=== PATIENT | male | born 1965 | race Caucasian/White ===

== ENCOUNTER 2017-02-13 08:25 | Inpatient (IN) | payer OTHER ==
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
[2017-02-13] MEDS ORDERED: fentaNYL 100 MCG/2 ML INJ ONE ×2 (08:34→18:17)
[2017-02-13] MEDS ORDERED: fentaNYL 100 MCG/2 ML INJ IVP ONE ×3 (08:35→10:05)
[2017-02-13] MEDS ORDERED: LORazepam 2 MG/ML INJ IVP PRN (10:06)
[2017-02-13] MEDS ORDERED: LORazepam 2 MG/ML INJ ONE (10:08)
[2017-02-13] MEDS ORDERED: HYDROmorphONE/DILAUDID 1 MG/ML SYR ONE (12:01)
[2017-02-13] MEDS ORDERED: HYDROmorphONE/DILAUDID 2 MG/ML INJ IVP PRN (12:02)
[2017-02-13] MEDS ORDERED: HYDROmorphONE/DILAUDID 6 MG/30 ML PCA IV ONE (12:25)
[2017-02-13] MEDS ORDERED: ONDANSETRON 4 MG/2 ML VIAL ONE ×2 (13:02→18:48)
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
[2017-02-13] MEDS ORDERED: ONDANSETRON 4 MG/2 ML VIAL IVP PRN ×2 (14:03→14:07)
[2017-02-13] MEDS ORDERED: DIAZEPAM 10 MG/2 ML SYR IVP PRN (14:07)
[2017-02-13] MEDS ORDERED: BUPIVACAINE 0.5% 30 ML SDV ONE (14:20)
[2017-02-13] MEDS ORDERED: LIDOCAINE 1% 30 ML SDV ONE (14:20)
[2017-02-13 14:34] LABS: % IMMATURE GRANULYOCYTES 0.3 % (0.0-1.1); ABSOLUTE IMMATURE GRANULOCYTES 0.04 10^3/uL (0.00-0.10); ADD DIFF? NO; ADD MORPH? NO; ADD SCAN? NO; ATYPICAL LYMPHOCYTE FLAG 0 (0-99); FRAGMENT RBC FLAG 0 (0-99); HEMATOCRIT 40.8 % (40.0-51.0); HEMOGLOBIN 14.2 g/dL (13.7-17.5); LEFT SHIFT FLG 0 (0-99); LIPEMIA HEMOLYSIS FLAG 90 (0-99); MEAN CELL HEMOGLOBIN 30.2 pg (27.9-34.1); MEAN CELL HEMOGLOBIN CONCENTR. 34.8 g/dL (32.4-36.7); MEAN CELL VOLUME 86.8 fL (81.5-99.8); MEAN PLATELET VOLUME 9.9 fL (8.7-11.7); PLATELET CLUMPS FLAG 0 (0-99); PLATELET COUNT 211 10^3/uL (150-400); RED CELL DISTRIBUTION WIDTH 12.9 % (11.5-15.2)
[2017-02-13 14:43] LABS: INR 1.11 (0.83-1.16); PROTIME(PATIENT) 14.2 SEC (12.0-15.0)
[2017-02-13 14:44] LABS: APTT 23.3 SEC (23.0-38.0)
--- NOTE | 2017-02-13 14:57 | CPEKG ---
Heart Rate: 53 RR Interval: 1132 P-R Interval: 156 QRSD Interval: 82 QT Interval: 436 QTC Interval: 410 P Cheriton: 65 QRS Cheriton: 69 T Wave Cheriton: -26 EKG Severity - ABNORMAL ECG - EKG Impression: SINUS RHYTHM EKG Impression: NONSPECIFIC T ABNORMALITIES, INFERIOR LEADS Electronically Signed By: García Arevalo 14-Feb-2017 14:24:25
[2017-02-13 14:58] LABS: ANION GAP 8 mEq/L (8-16); CALCIUM 8.9 mg/dL (8.5-10.4); CARBON DIOXIDE 25 mEq/l (22-31); CHLORIDE 102 mEq/L (97-110); CREATININE 0.8 mg/dL (0.7-1.3); GLOMERULAR FILTRATION RATE > 60; GLUCOSE 108 mg/dL (70-100); POTASSIUM 4.8 mEq/L (3.5-5.2); SODIUM 135 mEq/L (134-144)
[2017-02-13] MEDS ORDERED: MIDAZOLAM 2 MG/2 ML VIAL ONE (16:15)
[2017-02-13] MEDS ORDERED: SCOPOLAMINE HYDROBROMIDE 1.5 MG PATCH TD ONE ×2 (16:17→16:30)
[2017-02-13] MEDS ORDERED: DEXAMETHASONE 4 MG/ML VIAL ONE (16:20)
[2017-02-13] MEDS ORDERED: RANITIDINE 50 MG/2 ML VIAL ONE (16:20)
[2017-02-13] MEDS ORDERED: fentaNYL 250 MCG/5 ML INJ ONE (16:20)
[2017-02-13] MEDS ORDERED: ROCURONIUM 50 MG/5 ML VIAL ONE ×2 (16:20→17:25)
[2017-02-13] MEDS ORDERED: PROPOFOL 200 MG/20 ML VIAL ONE (16:20)
[2017-02-13] MEDS ORDERED: ceFAZolin 2 GM/DEXTROSE 100 ML IV ONE (16:30)
[2017-02-13] MEDS ORDERED: NALOXONE HCL 0.4 MG/ML INJ IVP PRN (16:40)
[2017-02-13] MEDS ORDERED: HYDROmorphONE/DILAUDID 6 MG/30 ML PCA IV PRN (16:40)
[2017-02-13] MEDS ORDERED: ceFAZolin 1 GM VIAL ONE ×2 (17:06)
[2017-02-13] MEDS ORDERED: epHEDrine SULFATE 10 MG/ML SYR ONE (19:07)
[2017-02-13] MEDS ORDERED: NEOSTIGMINE METHYLSULFATE 5 MG/5 ML SYR ONE (19:41)
[2017-02-13] MEDS ORDERED: GLYCOPYRROLATE 0.2 MG/1 ML VIAL ONE (19:41)
--- NOTE | 2017-02-13 20:44 | SOAPPROG ---
SOAP Progress Note Assessment/Plan: Assessment: Pt is POD#0 right femur ORIF. Alert and oriented x3 NV intact Operative dressing intact Plan: 1. Flat foot weight bearing RLE 2. 1 dose Ancef to be given tonight 3. PT/OT tomorrow prior to discharge 4. Ok to discharge tomorrow with appointment scheduled with Dr. Goins in 2 weeks for wound check. 5. Prescriptions given to after surgery 02/13/17 20:40 Objective: Vital Signs Temp Pulse Resp BP Pulse Ox 36.5 C 125 H 12 125/75 H 100 02/13/17 20:27 02/13/17 20:27 02/13/17 20:36 02/13/17 20:36 02/13/17 20:36 Laboratory Results 02/13/17 14:29 02/13/17 14:29 02/12/17 02/13/17 02/14/17 05:59 05:59 05:59 Intake Total 1450 Output Total 750 Balance 700 PT 14.2 SEC (12.0-15.0) 02/13/17 14:29 INR 1.11 (0.83-1.16) 02/13/17 14:29 ICD10 Worksheet Patient Problems: Problems Problem Status Onset Femur fracture, right Acute
--- NOTE | 2017-02-13 20:46 | POSTOPPROG ---
Post Op Note Date of Operation: 02/13/17 Surgeon: Capo Goins Anesthesiologist: Angela Oquendo PA-C Anesthesia: GET(General Endotracheal) Pre-op Diagnosis: right femur fracture Post-op Diagnosis: right femur fracture Procedure: ORIF right femur Findings: right femur fracture Inf/Abcess present in the surg proc area at time of surgery?: No Depth: Deep Incisional (Fascial) EBL: 100-500
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
[2017-02-14] MEDS: OXYCODONE/APAP 5/325 TAB PO PRN ×3 (06:20→18:31)
--- NOTE | 2017-02-14 13:08 | SOAPPROG ---
SOAP Progress Note Assessment/Plan: Assessment: Pt is POD#1 right femur ORIF. Patient is doing well but is reporting pain and muscle spasm. Alert and oriented x3 NV intact Operative dressing intact with sanguineous drainage Plan: 1. Flat foot weight bearing RLE 2. Reinforce operative dressing 3. Continue PT/OT 4. Ok to discharge once cleared by PT/OT with appointment scheduled with Dr. Goins in 2 weeks for wound check. 5. Prescriptions given to after surgery 02/13/17 20:40 02/14/17 13:05 Objective: Vital Signs Temp Pulse Resp BP Pulse Ox 37.2 C 79 18 122/65 H 98 02/14/17 11:41 02/14/17 11:41 02/14/17 11:41 02/14/17 11:41 02/14/17 11:41 PT 14.2 SEC (12.0-15.0) 02/13/17 14:29 INR 1.11 (0.83-1.16) 02/13/17 14:29 ICD10 Worksheet Patient Problems: Problems Problem Status Onset Femur fracture, right Acute
[2017-02-14] MEDS ORDERED: MAGNESIUM HYDROXIDE 30 ML UDCUP PO PRN (13:49)
[2017-02-14] MEDS ORDERED: BISACODYL 10 MG SUPP PR PRN (13:49)
[2017-02-14] MEDS ORDERED: LACTULOSE 20 GM/30 ML UDCUP PO PRN (13:49)
[2017-02-14] MEDS ORDERED: DIAZEPAM 10 MG/2 ML SYR IVP PRN (13:50)
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
[2017-02-14] MEDS: SENNOSIDES/DOCUSATE SODIUM TAB PO SCH ×2 (16:15→19:42)
[2017-02-14] MEDS: DIAZEPAM 5 MG TAB PO PRN ×2 (16:15→22:39)
[2017-02-14 18:45] LABS: HEMATOCRIT 27.8 % (40.0-51.0); HEMOGLOBIN 9.8 g/dL (13.7-17.5); MEAN CELL HEMOGLOBIN 30.6 pg (27.9-34.1); MEAN CELL HEMOGLOBIN CONCENTR. 35.3 g/dL (32.4-36.7); MEAN CELL VOLUME 86.9 fL (81.5-99.8); RED BLOOD CELL COUNT 3.2 10^6/uL (4.40-6.38); RED CELL DISTRIBUTION WIDTH 12.8 % (11.5-15.2)
[2017-02-14] MEDS: KETOROLAC 30 MG/1 ML SDV IVP PRN (19:42)
[2017-02-15] MEDS: KETOROLAC 30 MG/1 ML SDV IVP PRN (02:16)
[2017-02-15] MEDS: OXYCODONE/APAP 5/325 TAB PO PRN ×5 (02:16→21:40)
[2017-02-15] MEDS: DIAZEPAM 5 MG TAB PO PRN ×3 (06:01→21:03)
[2017-02-15 09:39] LABS: HEMATOCRIT 27.1 % (40.0-51.0); HEMOGLOBIN 9.4 g/dL (13.7-17.5)
[2017-02-15] MEDS: POLYETHYLENE GLYCOL 3350 17 GM PKT PO PRN (09:53)
[2017-02-15] MEDS: SENNOSIDES/DOCUSATE SODIUM TAB PO SCH ×2 (09:53→21:03)
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
--- NOTE | 2017-02-15 19:36 | SOAPPROG ---
SOAP Progress Note Assessment/Plan: Assessment: HPI: 51 year old male now POD#2 from right proximal femoral shaft, right ST femur, and right IT femur fracture ORIF with a cephalomedullary device on 02/13/17. He reports that his pain is much improved today in comparison to yesterday. PE: RLE: Dressings CDI Thigh firm but compressible +Q, H, TA, EHL, FHL, G/S +SILT in DP, SP, Sural, Tibial, and Saphenous distributions 2+ DP and PT pulses Assessment and Plan 51 year old male now POD#2 from right proximal femoral shaft, right ST femur, and right IT femur fracture ORIF with a cephalomedullary device on 02/13/17 doing well -FFWB on RLE with crutches or walker -Continue with PT/OT for crutch training and transfers -Wean off of IV pain medications as tolerated -FU as an outpatient in 2 weeks for a wound check and staple removal -In the interim, he will keep the incisions clean and dry Addendum to above note: Contacted by Dr. Nishi Islas in regards to a change in patient's status. Evidence of left eye dilation. CT of head ordered to r/o an intracranial process. CT of head completed with evidence of sinusitis. As such, we will initiate of course of Augmentin PO for seven days. 02/15/17 19:30 Objective: Vital Signs Temp Pulse Resp BP Pulse Ox 36.6 C 75 17 116/64 94 02/15/17 19:28 02/15/17 19:28 02/15/17 19:28 02/15/17 19:28 02/15/17 19:28 Laboratory Results 02/15/17 09:30 02/14/17 02/15/17 02/16/17 05:59 05:59 05:59 Intake Total 900 Output Total 1350 900 Balance -450 -900 PT 14.2 SEC (12.0-15.0) 02/13/17 14:29 INR 1.11 (0.83-1.16) 02/13/17 14:29 ICD10 Worksheet Patient Problems: Problems Problem Status Onset Femur fracture, right Acute
[2017-02-15] MEDS: AMOX/CLAVULANATE 500/125 MG TAB PO SCH (21:40)
[2017-02-16] MEDS: OXYCODONE/APAP 5/325 TAB PO PRN ×3 (00:48→06:25)
[2017-02-16] MEDS: DIAZEPAM 5 MG TAB PO PRN (03:25)
[2017-02-16] MEDS: AMOX/CLAVULANATE 500/125 MG TAB PO SCH ×3 (06:25→22:16)
[2017-02-16] MEDS ORDERED: ONDANSETRON DISINTEGRATING 4 MG TAB PO PRN (09:47)
[2017-02-16] MEDS: traMADol 50 MG TAB PO PRN ×2 (09:50→16:06)
[2017-02-16] MEDS: SENNOSIDES/DOCUSATE SODIUM TAB PO SCH ×2 (09:50→20:44)
[2017-02-16] MEDS: ONDANSETRON DISINTEGRATING 4 MG TAB PO PRN ×2 (09:51→16:04)
[2017-02-16] MEDS: CYCLOBENZAPRINE 10 MG TAB PO PRN ×2 (10:00→20:44)
[2017-02-16] MEDS: ACETAMINOPHEN 500 MG TAB PO SCH ×3 (11:16→22:16)
[2017-02-16] MEDS: POLYETHYLENE GLYCOL 3350 17 GM PKT PO PRN (11:17)
--- NOTE | 2017-02-16 11:28 | SOAPPROG ---
SOAP Progress Note Assessment/Plan: HPI: 51 year old male now POD#3 from right proximal femoral shaft, right ST femur, and right IT femur fracture ORIF with a cephalomedullary device on 02/13/17. He reports that his pain has continued to improve however he is still reporting dizziness with standing. PE: RLE: Dressings CDI Thigh firm but compressible. Calf is soft +Q, H, TA, EHL, FHL, G/S +SILT in DP, SP, Sural, Tibial, and Saphenous distributions 2+ DP and PT pulses Assessment and Plan 51 year old male now POD#3 from right proximal femoral shaft, right ST femur, and right IT femur fracture ORIF with a cephalomedullary device on 02/13/17 doing well -CBC ordered -FFWB on RLE with crutches or walker -Continue with PT/OT for crutch training and transfers -Continue to wean off of IV pain medications as tolerated -Plan to discharge later today or tomorrow morning once cleared from PT/OT -FU as an outpatient in 2 weeks for a wound check and staple removal -In the interim, he will keep the incisions clean and dry Addendum: HGB 8.[address] Goins was notified and spoke with patients . Patient has mild dizziness with standing but otherwise feels good. We will repeat CBC in the AM. If Hgb drops, we will consider transfusion. Patient would also like home PT. Patient will be discharged with home PT, likely tomorrow afternoon. 02/16/17 11:23 02/17/17 12:38 Objective: Vital Signs Temp Pulse Resp BP Pulse Ox 36.9 C 79 15 117/61 96 02/16/17 08:00 02/16/17 08:00 02/16/17 08:00 02/16/17 08:00 02/16/17 08:00 Laboratory Results 02/15/17 09:30 02/15/17 02/16/17 02/17/17 05:59 05:59 05:59 Intake Total 900 500 Output Total 1350 1200 Balance -450 -700 PT 14.2 SEC (12.0-15.0) 02/13/17 14:29 INR 1.11 (0.83-1.16) 02/13/17 14:29 ICD10 Worksheet Patient Problems: Problems Problem Status Onset Femur fracture, right Acute
[2017-02-16 11:48] LABS: HEMATOCRIT 23.1 % (40.0-51.0); HEMOGLOBIN 8.2 g/dL (13.7-17.5); MEAN CELL HEMOGLOBIN 31.3 pg (27.9-34.1); MEAN CELL HEMOGLOBIN CONCENTR. 35.5 g/dL (32.4-36.7); MEAN CELL VOLUME 88.2 fL (81.5-99.8); RED BLOOD CELL COUNT 2.62 10^6/uL (4.40-6.38); RED CELL DISTRIBUTION WIDTH 12.6 % (11.5-15.2)
--- NOTE | 2017-02-16 16:30 | PDIAF ---
- Diagnosis Diagnosis: right femur fracture Code Status: Full Code - Medication Management Discharge Medications: Medications to Continue on Transfer Cyclobenzaprine [Flexeril 10 MG (*)] 10 mg PO TID PRN #30 tab 02/14/17 [Last Taken Unknown] Ondansetron Odt [Zofran Odt 4 mg (*)] 4 mg PO Q4 #30 tab 02/14/17 [Last Taken Unknown] oxyCODONE HCL [Oxycodone HCl] 5 mg PO Q4 PRN #60 tablet 02/14/17 [Last Taken Unknown] oxyCODONE HCL [Oxycontin] 10 mg PO Q12HRS PRN #6 tab.er.12h 02/14/17 [Last Taken Unknown] Diazepam [Valium 5 MG (*)] 5 mg PO Q6HRS PRN #30 tab 02/15/17 [Last Taken Unknown] Acetaminophen [Tylenol ES 500 mg (*)] 1,000 mg PO TID #0 tab 02/16/17 [Last Taken Unknown] Amox Tr/K Clav (Augmentin) [Augmentin 500/125 MG TAB (*)] 500 mg PO Q8HRS #0 tab 02/16/17 [Last Taken Unknown] Ondansetron Odt [Zofran Odt 4 mg (*)] 4 mg PO Q6 PRN #0 tab 02/16/17 [Last Taken Unknown] Discharge Medications: Refer to the Discharge Home Medication list for PRN reason. PICC Care - Routine: N/A - Orders Services needed: Physical Therapy Diet Recommendation: no restrictions on diet Diet Texture: Regular Texture Diet : Not applicable Wound Care Instructions: keep dressing clean and dry Activity/Weight Bearing Restrictions: flat foot weight bearing rle - Follow Up Care Current Providers and Referrals: Capo Goins MD [Medical Doctor] - Patient,NotPresent [Unknown] - As per Instructions
[2017-02-17] MEDS: traMADol 50 MG TAB PO PRN ×2 (04:53→11:56)
[2017-02-17 05:16] LABS: HEMATOCRIT 21.6 % (40.0-51.0); HEMOGLOBIN 7.4 g/dL (13.7-17.5); MEAN CELL HEMOGLOBIN 30.2 pg (27.9-34.1); MEAN CELL HEMOGLOBIN CONCENTR. 34.3 g/dL (32.4-36.7); MEAN CELL VOLUME 88.2 fL (81.5-99.8); RED BLOOD CELL COUNT 2.45 10^6/uL (4.40-6.38); RED CELL DISTRIBUTION WIDTH 12.7 % (11.5-15.2)
[2017-02-17] MEDS: AMOX/CLAVULANATE 500/125 MG TAB PO SCH ×2 (06:09→15:13)
[2017-02-17] MEDS: SENNOSIDES/DOCUSATE SODIUM TAB PO SCH (08:17)
[2017-02-17] MEDS: ACETAMINOPHEN 500 MG TAB PO SCH ×2 (08:18→15:13)
--- NOTE | 2017-02-17 12:36 | SOAPPROG ---
[facility] Progress Note Assessment/Plan: HPI: 51 year old male now POD#4 from right proximal femoral shaft, right ST femur, and right IT femur fracture ORIF with a cephalomedullary device on 02/13/17. He reports that his pain has is under control, he reported continued dizziness this AM. PE: RLE: Dressings CDI Thigh firm but compressible. Calf is soft +Q, H, TA, EHL, FHL, G/S +SILT in DP, SP, Sural, Tibial, and Saphenous distributions 2+ DP and PT pulses Assessment and Plan 51 year old male now POD#4 from right proximal femoral shaft, right ST femur, and right IT femur fracture ORIF with a cephalomedullary device on 02/13/17 doing well -CBC ordered this AM (HGB 7.4) -Transfuse 1 unit packed RBC and repeat H&H after transfusion -FFWB on RLE with crutches or walker -Continue with PT/OT for crutch training and transfers -Plan to discharge later today after H&H. Discharge home with home PT -FU as an outpatient in 2 weeks for a wound check and staple removal -In the interim, he will keep the incisions clean and dry 02/16/17 11:23 02/17/17 12:33 02/17/17 12:40 Objective: Vital Signs Temp Pulse Resp BP Pulse Ox 36.1 C 68 16 118/71 91 L 02/17/17 12:00 02/17/17 12:00 02/17/17 12:00 02/17/17 12:00 02/17/17 12:00 Laboratory Results 02/17/17 04:15 02/16/17 02/17/17 02/18/17 05:59 05:59 05:59 Intake Total 500 1650 Output Total 1200 400 Balance -700 1250 PT 14.2 SEC (12.0-15.0) 02/13/17 14:29 INR 1.11 (0.83-1.16) 02/13/17 14:29 ICD10 Worksheet Patient Problems: Problems Problem Status Onset Femur fracture, right Acute
[2017-02-17 13:07] VITALS: BP 130/69; PULSE 80; RESP 14; TEMP 98.1; O2SAT 93
[2017-02-17] MEDS: ONDANSETRON DISINTEGRATING 4 MG TAB PO PRN (13:29)
[2017-02-17 14:45] LABS: HEMATOCRIT 25.4 % (40.0-51.0); HEMOGLOBIN 8.9 g/dL (13.7-17.5)
[2017-02-17] MEDS: CYCLOBENZAPRINE 10 MG TAB PO PRN (16:56)
== END 2017-02-17 17:06 | disposition home health service (06) | DRG 482 ==
LOC: EDUNIT# → F3N 10:36 → OBSVTOIN 02-14 07:06
PROVIDERS: ADMIT Surgery; ATTEND Surgery
PROC: 0QS806Z Reposition Right Femoral Shaft with Intramedullary Internal Fixation Device, Open Approach (ICD-10-PCS; principal; 2017-02-13 16:00)
DX: S72.331A Displaced oblique fracture of shaft of right femur, initial encounter for closed fracture (principal); S72.21XA Displaced subtrochanteric fracture of right femur, initial encounter for closed fracture; S72.141A Displaced intertrochanteric fracture of right femur, initial encounter for closed fracture; V18.0XXA Pedal cycle driver injured in noncollision transport accident in nontraffic accident, initial encounter; Y93.55 Activity, bike riding
CPT/HCPCS: 96374; 97116-GP; 97161-GP; 97165-GO; 97530-GP; C1713; C1769; J0690; J1100; J1170; J1885; J2060; J2250; J2405; J2704; J2710; J2780; J3010; P9016

== ENCOUNTER → 2017-12-24 | Outpatient (CLI) | payer OTHER | LOC: FIMAGING 12:50 | PROVIDERS: ATTEND Nurse Practitioner | DX: R05 Cough (principal); R06.2 Wheezing; R07.9 Chest pain, unspecified ==

== ENCOUNTER 2018-09-29 07:11 | Day surgery (SDC) | payer OTHER ==
[2018-09-29] MEDS ORDERED: NS 1,000 ML IV ONE (07:16)
[2018-09-29 07:51] LABS: PLATELET COUNT 184 10^3/uL (150-400)
[2018-09-29 07:57] LABS: INR 0.96 (0.83-1.16)
[2018-09-29] MEDS ORDERED: LIDOCAINE 1% 300 MG/30 ML SDV ONE (08:17)
[2018-09-29] MEDS ORDERED: HEPARIN 10,000 UNIT/10 ML MDV (1,000 UNIT/ML) ONE (08:17)
--- NOTE | 2018-09-29 08:17 | PDGENHP ---
History & Physical Chief Complaint: abnormal ecg, night terrors Relevant Physical Exam: s1s2 rrr cta ao3 Cardiorespiratory Assessment: abnormal ecg, subtle delta wave in v2. Plan diagnostic EPS, ablation if necessary. LINQ if EP study negative.
[2018-09-29] MEDS ORDERED: BUPIVACAINE 0.75% 10 ML SDV ONE (08:18)
[2018-09-29] MEDS ORDERED: ISOPROTERENOL HCL/D5W 0.2 MG/50 ML BAG IV ONE (08:18)
[2018-09-29] MEDS ORDERED: MIDAZOLAM 2 MG/2 ML VIAL IVP ONE (08:27)
--- NOTE | 2018-09-29 08:28 | PDANEPAE ---
ANE History of Present Illness EP study ANE Past Medical History - Cardiovascular History Hx Hypertension: No Hx Arrhythmias: No Hx Chest Pain: No Hx Coronary Artery / Peripheral Vascular Disease: No Hx CHF / Valvular Disease: No Hx Palpitations: No - Pulmonary History Hx COPD: No Hx Asthma/Reactive Airway Disease: No Hx Recent Upper Respiratory Infection: No Hx Oxygen in Use at Home: No Hx Sleep Apnea: No - Endocrine History Hx Diabetes: No - Chronic Pain History Chronic Pain: No ANE Review of Systems Review of systems is: negative Review of Systems: - Exercise capacity Exercise capacity: >=4 METS ANE Patient History - Allergies Allergies/Adverse Reactions: No Known Allergies Allergy (Verified 09/22/18 10:16) - Home Medications Home medications: home medication list seen and reviewed Home Medications: NK [No Known Home Meds] 09/22/18 [Last Taken Unknown] - Anes Hx Anes Hx: no prior problems - Smoking Hx Smoking Status: Never smoked ANE Labs/Vital Signs - Labs Result Diagrams: 09/29/18 07:25 09/29/18 07:25 - Vital Signs Height: 180 cm Weight: 77.1 kg ANE Physical Exam - Airway Neck exam: FROM Mallampati Score: Class 1 Mouth exam: normal dental/mouth exam - Pulmonary Pulmonary: no respiratory distress - Cardiovascular Cardiovascular: regular rate and rhythym - ASA Status ASA Status: I ANE Anesthesia Plan Anesthesia Plan: general endotracheal anesthesia
--- NOTE | 2018-09-29 08:28 | POSTANESTH ---
Post Anesthetic Evaluation Cardiovascular Status: Normal, Stable Respiratory Status: Normal, Stable Level of Consciousness/Mental Status: Can Participate in Eval, Alert and Oriented Pain Control: Adequate, Prn Tx Ordered Nausea/Vomiting Control: Adequate, Prn Tx Ordered Complications Possibly Related to Anesthesia: None Noted
[2018-09-29] MEDS ORDERED: fentaNYL 100 MCG/2 ML INJ ONE (08:57)
[2018-09-29] MEDS ORDERED: ROCURONIUM 50 MG/5 ML VIAL ONE ×2 (08:58→09:27)
[2018-09-29] MEDS ORDERED: PROPOFOL 200 MG/20 ML VIAL ONE (08:58)
[2018-09-29] MEDS ORDERED: DEXAMETHASONE 4 MG/ML VIAL ONE (09:09)
[2018-09-29] MEDS ORDERED: SUGAMMADEX SODIUM 200 MG/2 ML VIAL IVP ONE (09:23)
[2018-09-29] MEDS ORDERED: ONDANSETRON 4 MG/2 ML VIAL ONE (09:23)
[2018-09-29] MEDS ORDERED: ADENOSINE 6 MG/2 ML VIAL ONE ×2 (10:02→10:15)
--- NOTE | 2018-09-29 10:24 | EPPROC ---
Electrophysiology Procedure Note: DIAGNOSTIC ELECTROPHYSIOLOGIC STUDY Procedures performed: 1. Fluoroscopy 2. EP evaluation with RA/RV/LA pace/record, with arrhythmia induction 3. EP evaluation with RA/RV pace record, insert/reposition catheter, with arrhythmia induction 4. Programmed stimulation + pacing after IV drug INDICATION: Abnormal ECG Palpitations PROCEDURE: Catheters & Anesthesia: The patient arrived in the Electrophysiology Laboratory in the fasting state. The right clavicular region, right groin, & left groin area were prepped & draped in the usual sterile manner. Dr. Terra Andrade administered anesthesia. Appropriate non-invasive blood pressure, pulse oximetry & end-tidal CO2 monitoring was established. Heparin 3000 U was administered. All catheters were placed percutaneously using the modified Seldinger technique , and advanced into position under fluoroscopic guidance. One #6 Niuean hexapolar non-deflectable electrode catheter was inserted into the right atrial appendage via the left femoral vein (2mm spacing; except the proximal ring which was 25cm from the tip used for unipolar recordings). One #7 Niuean deflectable octapolar electrode catheter was advanced to the His-bundle position via the left femoral vein (2mm spacing). One #7 Niuean Halo catheter was placed along the tricuspid annulus. One #7 Niuean deflectable catheter with 10 pairs of electrodes was placed via the L femoral vein into the coronary sinus. Programmed stimulation was performed from the right atrium, right ventricle and coronary sinus (left atrium). Parahisian pacing demonstrated constant H-A interval with changing V-A intervals and stimulus-A intervals during capture and loss of capture of proximal RBB proving retrograde conduction over AV node. There was no antegrade accessory pathway conduction. Adenosine 6 and then 12 mg was given with AH prolongation and 1 nonconducted P wave proving there was no antegrade accessory pathway. Programmed ventricular stimulation was performed. No sustained reentrant tachycardia was induced during programmed stimulation at baseline or during graded doses of isoproterenol up to 8 mcg/min. Upto 3 bts of atrial tachycardia were induced. The catheters were removed. Vascular access sheaths were removed in the EP lab after placing subcutaneous pursestring suture. The patient was transferred to the cardiovascular holding area in stable condition. There were no apparent complications. SCL 1040 AH 75 ms HV 40 ms Antegrade WBB 420 ms, no slow pathway Retrograde WBB 340 ms CONCLUSIONS 1. Normal sinus and AV node function. 2. No evidence of accessory AV pathway presence. 3. No sustained arrhythmias induced. Nonsustained atrial tachycardia. 4. No apparent complications. Patient Problems: Problems Problem Status Onset Abnormal ECG Acute Femur fracture, right Acute
--- NOTE | 2018-09-29 10:34 | EPPROC ---
Electrophysiology Procedure Note: PROCEDURE PERFORMED: Implantation of [employer] LINQ Implantable Loop Recorder INDICATION: Unexplained palpitations PROCEDURE NOTE: Patient was on table after EP study. L parasternal area was prepped and draped. Lidocaine plus bupivacaine was used for local anesthesia. Using provided insertion tool, SJM CONFIRM device was placed along the 4th intercostal space. Appropriate dressing was applied. The patient left the cardiac catheterization laboratory in stable condition. Serial Numbers: [id number] SN # Programming: Patient Activated events 3 Auto Activated events 27 (Asystole 3s, HR <30 bpm, >180 bpm, >220bpm) Patient Problems: Problems Problem Status Onset Abnormal ECG Acute Femur fracture, right Acute
[2018-09-29] MEDS ORDERED: KETOROLAC 15 MG/1 ML SDV IVP ONE (12:30)
--- NOTE | 2018-09-29 16:40 | CPEKG ---
Test Reason : OPEN Blood Pressure : / mmHG Vent. Rate : 054 BPM Atrial Rate : 054 BPM P-R Int : 157 ms QRS Dur : 090 ms QT Int : 443 ms P-R-T Axes : 056 037 -17 degrees QTc Int : 420 ms Sinus rhythm Left ventricular hypertrophy Nonspecific T abnormalities, inferior leads Confirmed by Eleazar Kinsey ([id number]) on 09/29/2018 4:39:53 PM Referred By: Confirmed By:Eleazar Kinsey
--- NOTE | 2018-09-29 16:41 | CPEKG ---
Test Reason : OPEN Blood Pressure : / mmHG Vent. Rate : 063 BPM Atrial Rate : 064 BPM P-R Int : 164 ms QRS Dur : 097 ms QT Int : 427 ms P-R-T Axes : 060 047 -23 degrees QTc Int : 438 ms Sinus rhythm Probable left ventricular hypertrophy Borderline T abnormalities, inferior leads Confirmed by Eleazar Kinsey ([id number]) on 09/29/2018 4:41:28 PM Referred By: Confirmed By:Eleazar Kinsey
[2018-09-30] MEDS ORDERED: ASPIRIN 81 MG CHEWABLE TAB PO SCH (09:00)
== END 2018-09-29 16:30 | disposition home or self-care (01) ==
LOC: FSGY 07:11 → FCATH 16:30
PROVIDERS: ATTEND Internal Medicine Cardiovascular Disease
DX: R94.31 Abnormal electrocardiogram [ECG] [EKG] (principal); R00.2 Palpitations
CPT/HCPCS: 33282; 93005; 93620; 93621; 93623; C1730; C1731; C1764; J0153; J1100; J1644; J1885; J2250; J2405; J2704; J3010